=== PATIENT | female | born 1945 | race Caucasian/White ===

== ENCOUNTER → 2016-04-13 | Outpatient (CLI) | payer OTHER, MEDICARE | LOC: BHLMT 13:30 | PROVIDERS: ATTEND Internal Medicine Cardiovascular Disease | DX: I27.0 Primary pulmonary hypertension (principal); E11.9 Type 2 diabetes mellitus without complications; E78.5 Hyperlipidemia, unspecified; E66.01 Morbid (severe) obesity due to excess calories; I73.9 Peripheral vascular disease, unspecified; G62.9 Polyneuropathy, unspecified | CPT/HCPCS: 93005-PO ==

== ENCOUNTER → 2016-04-24 | Outpatient (CLI) | payer OTHER, MEDICARE | LOC: BHFA 13:00 | PROVIDERS: ATTEND Internal Medicine Cardiovascular Disease | DX: R06.02 Shortness of breath (principal) | CPT/HCPCS: 78452; 93017; A9500; J2785 ==

== ENCOUNTER → 2016-06-30 | Outpatient (CLI) | payer OTHER, MEDICARE | LOC: FIMAGING 10:03 | PROVIDERS: ATTEND Internal Medicine Pulmonary Disease | DX: I27.0 Primary pulmonary hypertension (principal); R07.9 Chest pain, unspecified | CPT/HCPCS: 71020; 78582; 93970; A9540; A9558 ==

== ENCOUNTER 2016-08-08 11:19 | Day surgery (SDC) | payer OTHER, MEDICARE ==
[2016-08-08] MEDS ORDERED: NS 1,000 ML IV ONE (11:23)
[2016-08-08] MEDS ORDERED: ASPIRIN EC 325 MG TAB PO ONE ×2 (11:23→12:04)
[2016-08-08] MEDS ORDERED: FAMOTIDINE 20 MG TAB PO ONE (11:23)
[2016-08-08] MEDS ORDERED: DIAZEPAM 5 MG TAB PO ONE (11:23)
[2016-08-08] MEDS ORDERED: diphenhydrAMINE 25 MG CAP PO ONE ×2 (11:23→12:04)
--- NOTE | 2016-08-08 11:54 | CPEKG ---
Heart Rate: 79 RR Interval: 759 P-R Interval: 180 QRSD Interval: 72 QT Interval: 376 QTC Interval: 432 P [place]: 32 QRS [place]: -3 T Wave [place]: 46 EKG Severity - NORMAL ECG - EKG Impression: SINUS RHYTHM Electronically Signed By: Geraldo Jalloh 08-Aug-2016 16:17:58
[2016-08-08] MEDS ORDERED: FAMOTIDINE 20 MG TAB ONE (12:04)
[2016-08-08] MEDS ORDERED: DIAZEPAM 5 MG TAB ONE (12:05)
[2016-08-08 12:08] LABS: % IMMATURE GRANULYOCYTES 0.6 % (0.0-1.1); ABSOLUTE IMMATURE GRANULOCYTES 0.04 10^3/uL (0.00-0.10); ADD DIFF? NO; ADD MORPH? NO; ADD SCAN? NO; ATYPICAL LYMPHOCYTE FLAG 0 (0-99); FRAGMENT RBC FLAG 0 (0-99); HEMATOCRIT 40.5 % (38.0-47.0); HEMOGLOBIN 13.8 g/dL (12.6-16.3); LEFT SHIFT FLG 0 (0-99); LIPEMIA HEMOLYSIS FLAG 90 (0-99); MEAN CELL HEMOGLOBIN CONCENTR. 34.1 g/dL (32.4-36.7); MEAN CELL VOLUME 99.8 fL (81.5-99.8); MEAN PLATELET VOLUME 9.2 fL (8.7-11.7); PLATELET CLUMPS FLAG 0 (0-99); PLATELET COUNT 263 10^3/uL (150-400); RED BLOOD CELL COUNT 4.06 10^6/uL (4.18-5.33); RED CELL DISTRIBUTION WIDTH 12.5 % (11.5-15.2)
[2016-08-08 12:20] LABS: ANION GAP 14 mEq/L (8-16); CALCIUM 10.1 mg/dL (8.5-10.4); CARBON DIOXIDE 19 mEq/l (22-31); CHLORIDE 104 mEq/L (97-110); CHOLESTEROL 185 mg/dL (140-220); CHOLESTEROL/HDL RATIO 3.03 RATIO (1.00-4.44); CREATININE 0.9 mg/dL (0.6-1.0); GLOMERULAR FILTRATION RATE > 60; GLUCOSE 107 mg/dL (70-100); HIGH DENSITY LIPOPROTEIN 61 mg/dL (40-85); LDL/HDL RATIO 1.39 RATIO (1.00-3.22); LOW DENSITY LIPOPROTEIN 85 mg/dL (80-100); MAGNESIUM 1.7 mg/dL (1.6-2.3); NON-HIGH DENSITY LIPOPROTEIN 124 mg/dL (90-129); POTASSIUM 4.9 mEq/L (3.5-5.2); SODIUM 137 mEq/L (134-144); TRIGLYCERIDE 198 mg/dL (35-135); VERY LOW DENSITY LIPOPROTEINS 39 mg/dL (8-25)
[2016-08-08 12:43] LABS: PROTIME(PATIENT) 13.1 SEC (12.0-15.0)
[2016-08-08] MEDS ORDERED: LIDOCAINE 1% 300 MG/30 ML SDV ONE (13:53)
[2016-08-08] MEDS ORDERED: fentaNYL 100 MCG/2 ML INJ ONE (13:53)
[2016-08-08] MEDS ORDERED: MIDAZOLAM 2 MG/2 ML VIAL ONE ×2 (13:54→14:49)
[2016-08-08] MEDS ORDERED: IOPAMIDOL (ISOVUE-370) 150 ML BTL IV ONE (13:54)
[2016-08-08] MEDS ORDERED: ADENOSINE 6 MG/2 ML VIAL ONE ×2 (14:22→14:24)
[2016-08-08] MEDS ORDERED: ADENOSINE 90 MG/30 ML VIAL IV ONE (14:23)
--- NOTE | 2016-08-09 01:50 | CPIP ---
[f rep st] INVASIVE CARDIAC PROCEDURE DATE OF PROCEDURE: 08/08/2016 INDICATIONS: The patient is 71 years old. She has a history of an elevated estimated RVSP by echoc ardiography with [place] [employer] Functional Class 2/3 exertional dyspnea. She has been see n by Pulmonology and is now referred for right and left heart catheterization to delineate her pulmo nary pressures and rule out underlying ischemia as an anginal equivalent. PROCEDURE: Diagnostic right and left heart catheterization, coronary angiography, left ventriculogr aphy. TECHNIQUE: Following informed consent, the patient was brought to the cardiac [facility] in a fasting state. The right groin was prepped and draped in the usual sterile fashion. Usi ng the modified Seldinger technique, access was gained to the right femoral vein. A 7-Kinyarwanda sheath was placed. Access was gained using modified Seldinger technique to the right femoral artery, and a 6-Kinyarwanda sheath was placed. Using standard Multipack, a left heart catheterization was performed with orthogonal imaging of the coronary arteries and left ventriculography. A full right heart cath eterization was subsequently performed. Following the procedure, catheters were removed from the rayna dy. The sheaths were pulled. The arteriotomy was closed with Angio-Seal, and manual pressure was h eld for the venous access. FINDINGS: HEMODYNAMICS: Pulmonary capillary wedge pressure at end-diastole was 22 with a mean of 1 5; pulmonary artery pressure was 57/29 with a mean of 40 mmHg; right ventricular pressure 54/9 with end-diastolic pressure of 15 mmHg; right atrial pressure was 12 mmHg. Saturation in the pulmonary a rtery 66%, in the aorta 89.4%. Calculated cardiac output by Inderjit was 5.58 L/min with an index of 2. 86 L/min per meter squared. Due to the patient's elevated pulmonary capillary wedge pressure, the d ecision was made not to use vasodilator challenge. ANGIOGRAPHY: Left main: Left main is a large caliber vessel with appropriate bifurcation of left anterior descen ding and circumflex distributions. The left main coronary artery is free of disease. Left anterior descending: Left anterior descending is a moderate caliber transapical vessel with us ual complement of diagonal branches. In the mid vessel, there is a 40% to 50% focal lesion. Circumflex: Circumflex is moderate caliber. There are 2 obtuse marginal branches. The circumflex and its branch vessels are normal in appearance. Right coronary artery: Right coronary artery is moderate caliber and dominant. The right coronary artery is normal in appearance. LEFT VENTRICULOGRAPHY: Ejection fraction is estimated at 70% with normal wall motion. No significa nt mitral insufficiency is appreciated. IMPRESSION: 1. Moderate pulmonary hypertension with evidence of elevated pulmonary capillary wedge pressure. 2. Mild nonobstructive coronary artery disease with evidence of a 40% to 50% mid left anterior desc ending lesion. 3. Preserved left ventricular systolic function. 4. General impression is that the patient does not have evidence of primary pulmonary hypertension. RECOMMENDATIONS: Patient will be managed medically. /[id number]/MODL
== END 2016-08-08 19:37 | disposition home or self-care (01) ==
LOC: FCATH 11:19
PROVIDERS: ATTEND Internal Medicine Cardiovascular Disease
PROC: B2111ZZ Fluoroscopy of Multiple Coronary Arteries using Low Osmolar Contrast (ICD-10-PCS; principal; 2016-08-08)
PROC: B2151ZZ Fluoroscopy of Left Heart using Low Osmolar Contrast (ICD-10-PCS; principal; 2016-08-08)
PROC: 4A023N8 Measurement of Cardiac Sampling and Pressure, Bilateral, Percutaneous Approach (ICD-10-PCS; principal; 2016-08-08)
DX: I27.2 Other secondary pulmonary hypertension (principal); R06.09 Other forms of dyspnea; E66.01 Morbid (severe) obesity due to excess calories; G47.33 Obstructive sleep apnea (adult) (pediatric); I25.10 Atherosclerotic heart disease of native coronary artery without angina pectoris; I12.9 Hypertensive chronic kidney disease with stage 1 through stage 4 chronic kidney disease, or unspecified chronic kidney disease; E11.21 Type 2 diabetes mellitus with diabetic nephropathy; I36.1 Nonrheumatic tricuspid (valve) insufficiency; N18.3 Chronic kidney disease, stage 3 (moderate); E78.5 Hyperlipidemia, unspecified; Z68.41 Body mass index [BMI] 40.0-44.9, adult; I73.9 Peripheral vascular disease, unspecified; G62.9 Polyneuropathy, unspecified; Z87.891 Personal history of nicotine dependence
CPT/HCPCS: C1760; J0153; J1644; J2250; J3010; Q9967

== ENCOUNTER 2017-04-30 14:14 | Inpatient (IN) | payer OTHER, MEDICARE ==
[2017-04-30] MEDS ORDERED: ONDANSETRON 4 MG/2 ML VIAL IVP PRN ×3 (16:56→19:03)
[2017-04-30 17:39] LABS: PLATELET COUNT 375 10^3/uL (150-400)
--- NOTE | 2017-04-30 17:40 | CPEKG ---
Heart Rate: 94 RR Interval: 638 P-R Interval: 168 QRSD Interval: 72 QT Interval: 360 QTC Interval: 451 P [place]: 43 QRS [place]: -31 T Wave [place]: 79 EKG Severity - ABNORMAL ECG - EKG Impression: SINUS RHYTHM EKG Impression: PROBABLE INFERIOR INFARCT, AGE INDETERMINATE Electronically Signed By: Lance Pulido 02-May-2017 10:09:36
[2017-04-30] MEDS ORDERED: PROTOCOL POTASSIUM 1 DOSE MISC PRN (18:59)
[2017-04-30] MEDS ORDERED: NS 1,000 ML IV SCH (19:00)
[2017-04-30] MEDS ORDERED: HYDROmorphONE/DILAUDID 1 MG/ML INJ IVP PRN (19:03)
[2017-04-30] MEDS ORDERED: ACETAMINOPHEN 325 MG TAB PO PRN (19:03)
[2017-04-30] MEDS ORDERED: PROMETHAZINE HCL 25 MG/ML INJ IVP PRN (19:03)
[2017-04-30] MEDS ORDERED: hydrALAZINE 20 MG/ML VIAL IVP PRN (19:10)
[2017-04-30] MEDS ORDERED: HYDROmorphone HCL/NS 0.5 MG/ML SYR IVP PRN (19:17)
--- NOTE | 2017-04-30 20:58 | GHP ---
[f rep st] HISTORY AND PHYSICAL DATE OF ADMISSION: 04/30/2017 CHIEF COMPLAINT: Shortness of breath. Abdominal pain. Unintentional weight loss. HISTORY: The patient is a 72-year-old female who has been having shortness of breath for the last ye ar, but it did get much better and she was having much more tolerance with activity, but for the last week she has again returned to severe shortness of breath, where she can now only just walk 2 feet b efore she gets acute onset of severe dyspnea on exertion. She denies any edema. She has also been h aving a central chest pressure for the last 2-3 days, which feels like a fist pushing deep into her c hest. She also complains of unrelenting nausea for the last couple of months, and she has lost 32 pounds un intentionally. She has had diarrhea for the last 2 months. She has had an epigastric abdominal pain , and her primary care doctor prescribed omeprazole but it has not helped. Her last colonoscopy was 5 years ago. She has never had an EGD. PAST MEDICAL HISTORY: 1. Pulmonary hypertension. 2. Nonobstructive coronary artery disease, with a 50% LAD lesion on cardiac catheterization in July 2016. 3. Obstructive sleep apnea. Oxygen at night with a mouthpiece. 4. Chronic kidney disease. Baseline creatinine 1.4. 5. Obesity, BMI 34. PAST SURGICAL HISTORY: Gastric bypass surgery. MEDICATIONS: Please see computerized record for full detailed list. ALLERGIES: Codeine and rosuvastatin. SOCIAL HISTORY: She quit smoking 20 years ago. She drinks 1-2 glasses of wine per night. She lives alone. REVIEW OF SYSTEMS: Complete review of systems obtained. Review of systems negative regarding consti tutional, HEENT, GI, pulmonary, cardiovascular, , hematology, skin, musculoskeletal, endocrine, and psych, except for positives and negatives as noted in HPI. FAMILY HISTORY: Reviewed and noncontributory to presenting complaint. PHYSICAL EXAMINATION: GENERAL: Well-developed, well-nourished female, in no acute distress. VITAL SIGNS: Temperature is 36.6, pulse 102, blood pressure 161/101, saturating 94% on room air. EYES: N ormal conjunctivae. Pupils reactive to light. ENT: Normal ears and nose. Hearing intact. Normal teeth. Oropharynx moist. NECK: Trachea midline. No thyromegaly. CHEST: Normal effort. LUNGS: Clear to auscultation bilaterally. CARDIOVASCULAR: Regular rhythm. No murmur. No lower extremity edema. ABDOMEN: Soft. Minimal tenderness. No hepatosplenomegaly. SKIN: Warm, dry, intact, witho ut rash. MUSCULOSKELETAL: No cyanosis or clubbing. Strength 5/5 upper and lower extremities. NEUR O: Cranial nerves intact. Normal sensation to light touch. PSYCH: Alert and oriented x3. Normal affect. Normal judgment and insight. Normal memory. LABS: White count 7.97, hematocrit 37.7, platelet 375. Sodium 136, potassium 3.3, chloride 88, bica rb 26, BUN 32, creatinine 1.7, glucose 113. Troponins negative. BNP is 116. D-dimer is 0.51. EKG viewed by me, and my personal interpretation is normal sinus rhythm but with some anterior T-wave fla ttening. Chest x-ray is negative. ASSESSMENT AND PLAN: 1. Dyspnea on exertion. Her chest x-ray is negative. Her D-dimer is negative. We will check an ec hocardiogram. Cardiology will follow. She was directly admitted to the hospital by Dr. Jalloh after he saw her in the office today. 2. Chest pain. She had a cardiac catheterization less than 1 year ago that showed a 50% LAD lesion. We will follow troponins. Given this recent cardiac catheterization, if her troponins are negative I think it is less likely to be cardiac in origin, and again I think we need to pursue a further GI workup. 3. Kbaqg-ww-lneiqnu kidney disease. I suspect she is dehydrated due to poor p.o. intake. We will h ydrate overnight with IV fluids and recheck in the morning. 4. Abdominal pain, with a greater than 30 pound unintentional weight loss. We will check a CT scan of the abdomen and pelvis. Would also consider endoscopy, EGD, and colonoscopy. 5. Pulmonary hypertension. She also had a right heart catheterization last July. This is likely du e to her obesity and obstructive sleep apnea. 6. Hypertension. This is uncontrolled, with elevated blood pressures on presentation. We will pres cribe p.r.n. IV hydralazine and continue home medications. CODE STATUS: Full. ADMISSION STATUS: We will admit to observation and reevaluate tomorrow regarding ongoing need for ho spitalization. DVT PROPHYLAXIS: She is high risk. We placed her on subcu Lovenox. /[id number]/MODL
[2017-04-30] MEDS ORDERED: NON-FORMULARY NEW DRUG (Omeprazole [Omeprazole] 20 MG) PO SCH (21:00)
[2017-04-30] MEDS: PRAVASTATIN SODIUM 20 MG TAB PO SCH (22:28)
[2017-04-30] MEDS: PANTOPRAZOLE SODIUM 40 MG TAB PO SCH (22:28)
[2017-04-30] MEDS ORDERED: POTASSIUM CL 10 MEQ TAB PO ONE (22:30)
[2017-05-01 04:01] LABS: PLATELET COUNT 343 10^3/uL (150-400)
--- NOTE | 2017-05-01 08:33 | ECHO ---
[email or web address] [address] Main: [phone] Fax: Transthoracic Echocardiogram Name: KRUNAL BAIG MR#: [id number] Study Date: 04/30/2017 Study Time: 04:01 PM Date of : 1945 Age: 72 year(s) Height: 154.9 cm (61 in.) Weight: 83.01 kg (183 lb.) BSA: 1.82 m2 Gender: Female Examination: Echo Indication: Worsening dyspnea Image Quality: Contrast: Requested by: Geraldo Jalloh BP: 165 mmHg/101 mmHg Heart Rate: Rhythm: Indication: Worsening dyspnea Procedure Staff Hvac Maintenance Technician: Mickie Waller [facility] Reading Physician: Raghavendra Okeefe MD Requesting Provider: Conclusions: Normal size left ventricle. Mild concentric LV hypertrophy. Normal global systolic LV function. The ejection fraction is estimated to be 60-65 %. Grade 1 diastolic dysfunction (abnormal relaxation). Normal RV function. The left atrium is normal in size. The right atrium is normal in size. The pulmonary artery pressure is mildly increased. There is pericardial fat. Measurements: Chambers Valvular Assessment AV/MV Valvular Assessment TV/PV Normal Normal Normal Name Value Range Name Value Range Name Value Range Ao Gertrudis (MM): 3.3 cm (2.2 cm-3.7 AV meanP mmHg ( - ) TR Vmax: 2.76 mm/s ( - ) cm) MV E Vmax: 0.50 m/s ( - ) TR PGmax: 30 mmHg ( - ) IVSd (2D): 1.0 cm (0.6 cm-1.1 MV A Vmax: 0.93 m/s ( - ) syst. PAP: 35 mmHg ( - ) cm) MV E/A: 0.54 ( - ) LVDd (2D): 3.9 cm (3.9 cm-5.3 cm) LVDs (2D): 1.8 cm (2.1 cm-4 cm) LVPWd (2D): 0.4 cm ( - ) LVEF (2D): 84 (>=54 %) EF Range: 60-65 % Continued Measurements: Chambers Valvular Assessment AV/MV Valvular Assessment TV/PV Patient: KRUNAL BAIG Study Date: 04/30/2017 Page 1 of 2 04:01 PM Name Value Name Value Name Value LADs: 3.1 cm MV E' Septal: 0.06 m/s CVP (est.): 5 mmHg LADs Lon.6 cm MV E/E' Septal: 9.00 LA Area: 9.1 cm2 MV E/E' Lateral: 8.50 Additional Vessels Name Value Ao Ascendin.4 cm Findings: Left Ventricle: Normal size left ventricle. Mild concentric LV hypertrophy. Normal global systolic LV function. The ejection fraction is estimated to be 60-65 %. No regional wall motion abnormality. Grade 1 diastolic dysfunction (abnormal relaxation). Right Ventricle: Normal size right ventricle. Normal RV function. Left Atrium: The left atrium is normal in size. Right Atrium: The right atrium is normal in size. Mitral Valve: Trivial mitral valve regurgitation. Mildly calcified anterior mitral leaflet. MV leaflets are thickened.. Aortic Valve: The aortic valve is normal in appearance and function. Tricuspid Valve: The tricuspid valve is normal in appearance and function. Mild tricuspid regurgitation is present. The pulmonary artery pressure is mildly increased. Pulmonic Valve: The pulmonic valve is normal in appearance and function. Trivial pulmonic valve regurgitation. Aorta: The aorta is normal. Pericardium: No pericardial effusion. There is pericardial fat. (No Signature Object) Patient: KRUNAL BAIG Study Date: 04/30/2017 Page 2 of 2 04:01 PM D:_[id number]
[2017-05-01] MEDS: FLUoxetine 20 MG CAP PO SCH (08:53)
[2017-05-01] MEDS: CLOPIDOGREL BISULFATE 75 MG TAB PO SCH (08:54)
[2017-05-01] MEDS: CARVEDILOL 6.25 MG TAB PO SCH (08:54)
[2017-05-01] MEDS: PANTOPRAZOLE SODIUM 40 MG TAB PO SCH ×2 (08:54→19:45)
[2017-05-01] MEDS: NS W/ 20 KCl/L 1,000 ML IV SCH ×2 (08:58→22:09)
[2017-05-01] MEDS ORDERED: ENOXAPARIN 40 MG/0.4 ML SYR SC SCH (09:00)
[2017-05-01] MEDS ORDERED: NON-FORMULARY NEW DRUG (Fluoxetine Hcl [Prozac 40 Mg] 40 MG) PO SCH (09:00)
[2017-05-01] MEDS ORDERED: ENOXAPARIN 30 MG/0.3 ML SYR SC SCH (09:00)
--- NOTE | 2017-05-01 11:51 | ASMTCASEMG ---
Living Arrangements What is your living Answers: Alone arrangement? Who do you live with? Type Of Residence What kind of residence do Answers: Apartment you live in? Discharge Plan Comments Coordination Status Comments Notes: Pt is a 72 y/o female admitted for shortness of breath and hyx of hypertension. Therapies have been ordered and awaiting recommendations. Needs are TBD at this time. Pt is currently being followed by transitional care. CM to follow. Plan: TBD Date Signed: 05/01/2017 11:50 AM Electronically Signed By:ANNEMARIE Drew
--- NOTE | 2017-05-01 15:32 | GCON ---
[f rep st] CONSULTATION DATE OF CONSULTATION: 05/01/2017 CHIEF COMPLAINT: Shortness of breath and nausea. HISTORY OF PRESENT ILLNESS: The patient is a 72-year-old female who was referred to our office yesterday by Dr. Claudio Jalloh for progressive shortness of breath and chest pressure. She has a history of coronary artery disease with a 40%-50% lesion to the mid LAD by angiogram in July 2016. She also has known moderate pulmonary hypertension, obesity, obstructive sleep apnea, diabetes, hypertension, and chronic renal insufficiency. She has noted shortness of breath for over the past few years, but it has become significantly worse over the last 3-4 days. She is only able to walk a few feet before she has to stop and rest. She has also noted chest pressure, which can be constant, occurring at night, or throughout the day. It does seem to be worse with lying down, but is not worse with exertion or deep breaths. She has a history of gastric bypass and has been complaining of nausea for the past 6 months. She has also had anorexia and weight loss of 32 pounds over the last 3 months which was unintentional. She has only been able to eat soup over the last few months. Her diuretics were reduced secondary to pre renal azotemia a few weeks ago but her weight has continued to decline. On admission to the hospital, her BNP was within normal limits at 116. Her troponins have been negative x3. Her D-dimer was minimally elevated at 0.51. A chest x-ray was negative for acute cardiopulmonary disease. An echocardiogram showed preserved LV function with an ejection fraction of 60%-65% with mild left ventricular hypertrophy and mildly elevated right ventricular systolic pressures. She had a trial of omeprazole month ago. Initially, her nausea improved, but it has since returned. PAST MEDICAL HISTORY: Coronary artery disease with a 40%-50% lesion to the mid LAD by angiogram in July of 2016. Moderate pulmonary hypertension by right heart catheterization in July 2016, obesity, obstructive sleep apnea treated with mouthpiece and oxygen, diabetes, hypertension, hyperlipidemia, chronic renal insufficiency. PAST SURGICAL HISTORY: Gastric bypass. SIGNIFICANT FAMILY HISTORY: Coronary artery disease. SOCIAL HISTORY: She quit smoking tobacco 20 years ago. She currently lives alone. She is very concerned about her symptoms and is anxious to find the answer of why she has been so nauseous and short of breath. MEDICATION: Please see the chart for home medications. ALLERGIES: Codeine and Crestor. REVIEW OF SYSTEMS: Negative except for what is stated in the H and P. PHYSICAL EXAMINATION: GENERAL: Patient appears in no acute distress. VITAL SIGNS: Blood pressure 124/81, heart rate 83, oxygen saturation 99% on 1.5 L, afebrile. LUNGS: Clear to auscultation. No wheezes, rhonchi, or crackles auscultated. CARDIAC: Regular rate and rhythm without any significant murmurs , rubs, or gallops appreciated. ABDOMEN: Soft, nontender, without splenomegaly or hepatomegaly. EXTREMITIES: Palpable pulses bilaterally without any evidence of edema. NEUROLOGIC: Nonfocal. SKIN: No obvious rashes or ecchymosis identified. PSYCHIATRIC: Mood and affect appropriate. LABORATORY: Troponin negative x3. Hemoglobin 12.1, hematocrit 34.8. D-dimer 0.51. BNP 116. Sodium 136, potassium 3.1, chloride 92, bicarb 30, BUN 31, creatinine 1.8. DIAGNOSTIC STUDIES: Chest x-ray was negative for acute cardiopulmonary disease. Echocardiogram revealed preserved LV function with an ejection fraction of 60%-65% with mild LVH and mild elevated right ventricular systolic pressures. Her right ventricular function was normal. EKG reveals normal sinus rhythm with inferior Q-waves and nonspecific ST-T wave changes diffusely. ASSESSMENT: The patient is a 72-year-old female with a history of coronary artery disease, diastolic heart failure, pulmonary hypertension, obesity, sleep apnea, diabetes, hypertension, hyperlipidemia, and chronic renal insufficiency, who presents with profound shortness of breath, chest pressure, nausea, anorexia ,and weight loss. PLAN: The patient is a 72-year-old female who presents with class 3-4 heart failure symptoms. She has had chronic shortness of breath for the last few years, but it has significantly progressed over the last 3-4 days. She is now only able to walk a few feet before she has to stop and rest. She is also having significant chest discomfort. She had a prior angiogram in July of 2016 , which revealed moderate coronary disease with a 40%-50% mid LAD lesion which was not intervened upon. This admission her troponins are negative x3 and there are no significant changes on her EKG. Her echocardiogram showed preserved LV function with an ejection fraction of 60%-65% with only mildly elevated RVSP and normal RV function. I doubt her shortness of breath and chest discomfort is cardiac in origin. I would recommend further GI workup as a cause for her symptoms. She does have a history of gastric bypass surgery and is now having significant nausea, anorexia and unintentional weight loss. If her GI workup is negative, consider further evaluation for pulmonary embolus with a pulmonary CT angiogram. Her D-dimer is minimally elevated, but she is having fairly significant shortness of breath. We will wait to order the study given her renal insufficiency and creatinine of 1.7. She did have a v/Q scan in June 2016 for shortness of breath which was normal. She states her symptoms are significantly worse at this time. She is dehydrated and has had sinus tachycardia when going from a sitting to standing position. This is improving with fluid replacement. /[id number]/MODL MTDD
[2017-05-01] MEDS ORDERED: ONDANSETRON DISINTEGRATING 4 MG TAB PO PRN (15:36)
[2017-05-01] MEDS ORDERED: PROCHLORPERAZINE MALEATE 10 MG TAB PO PRN (15:37)
[2017-05-01] MEDS ORDERED: PROMETHAZINE HCL 25 MG TAB PO PRN (15:37)
[2017-05-01] MEDS ORDERED: ONDANSETRON 4 MG/2 ML VIAL IVP PRN (15:38)
[2017-05-01] MEDS ORDERED: PROMETHAZINE HCL 25 MG/ML INJ IVP PRN (15:38)
[2017-05-01] MEDS: HEPARIN 5,000 UNIT/0.5 ML SYR SC SCH ×2 (15:48→22:09)
[2017-05-01] MEDS: LOPERAMIDE HCL 2 MG CAP PO PRN ×3 (16:55→18:10)
--- NOTE | 2017-05-01 18:30 | HOSPPROG ---
Hospitalist Progress Note Assessment/Plan: Assessment: 72-year-old female presents with acutely worsening dyspnea and acute kidney injury Plan: 1. Dyspnea. Acute, new problem this provider, further workup indicated. Unclear etiology, patient has known coronary artery disease which was approximately 50% during cardiac catheterization with the past year, she is at risk for worsening obstructive coronary disease as well as pulmonary embolism -get V/Q scan -discussed with Randi Dominguez, cardiology consultation appreciated, she reports to me that the echocardiogram demonstrates a normal right ventricle, normal left ventricle, no significant valvular abnormalities, we have agreed to undergo nuclear medicine stress testing as soon as possible but will defer on treating this as unstable angina given the unusual nature of the presentation as well as negative cardiac biomarkers at this time and no ischemic changes on EKG, personally interpreted -if both of the above are unremarkable, then I will get high-resolution chest CT 2. Acute kidney injury on chronic kidney disease. Most likely secondary to hypovolemia and poor access to hydration in the setting of inability to ambulate and complete activities of daily living secondary to her pervasive dyspnea -baseline creatinine 1.4 with stage III disease,, current creatinine level 1.8 -continue IV fluids with small amount of supplemental potassium -continue to monitor strict I&Os, daily weights, creatinine level 3. Coronary artery disease. Chronic, continue home medications, risk stratify tomorrow if V/Q scan negative 4. Hypertension. Chronic, continue beta-bonnie 5. Nausea. Acute, no clearly identifiable etiology on abdominal CT with oral contrast Diet. Regular Prophylaxis. High risk patient, heparin subcu Code. Full Disposition. Anticipated discharge uncertain, upgraded to inpatient admission status given that anticipated length stay is greater than 48 hr for reasonable medical necessity including acute and pervasive dyspnea requiring further diagnostic workup with high risk of severe abnormalities including obstructive coronary disease and pulmonary embolism in the setting of concomitant acute kidney injury making diagnostic workup challenging. Subjective: She remains dyspneic at rest, unable to ambulate secondary to shortness of breath, nauseous Objective: Vital Signs Temp Pulse Resp BP Pulse Ox 36.9 C 84 15 106/79 99 05/01/17 15:57 05/01/17 15:57 05/01/17 15:57 05/01/17 15:57 05/01/17 15:57 Microbiology 05/01/17 10:30 Gastrointestinal Tract Panel (PCR) - Final Stool No Organism Detected Laboratory Results 05/01/17 03:04 05/01/17 03:04 04/30/17 05/01/17 05/02/17 05:59 05:59 05:59 Intake Total 700 Balance 700 - Physical Exam Constitutional: not in pain, obese, uncomfortable, No no apparent distress ( Mildly) Cardiovascular: tachycardia, No systolic murmur, No irregularly irregular, No edema Respiratory: no rales or rhonchi, clear to auscultation, respiratory distress ( Visibly tachypneic), No expiratory wheeze, No inspiratory crackles, No bronchial breath sounds Gastrointestinal: normoactive bowel sounds, no palpable masses, tenderness ( Mild in the mid epigastric area), No guarding, No distension Skin: warm, No abrasion, No erythema, No induration, No rash Neurologic: AAOx3, No facial droop Psychiatric: interacting appropriately, not encephalopathic, thought process linear, anxious, No agitated ICD10 Worksheet Patient Problems: Problems Problem Status Onset CKD (chronic kidney disease), stage III Acute
[2017-05-01] MEDS: PRAVASTATIN SODIUM 20 MG TAB PO SCH (19:45)
[2017-05-02 03:36] LABS: PLATELET COUNT 276 10^3/uL (150-400)
[2017-05-02] MEDS: NS W/ 20 KCl/L 1,000 ML IV SCH (06:10)
[2017-05-02] MEDS: HEPARIN 5,000 UNIT/0.5 ML SYR SC SCH ×3 (06:10→21:18)
[2017-05-02] MEDS ORDERED: POTASSIUM CL 20 MEQ TAB PO ONE (08:15)
[2017-05-02] MEDS ORDERED: POTASSIUM Cl (KCl) 40 MEQ in NS 1,000 ML IV SCH (08:30)
[2017-05-02] MEDS: CARVEDILOL 6.25 MG TAB PO SCH (08:34)
[2017-05-02] MEDS: PANTOPRAZOLE SODIUM 40 MG TAB PO SCH ×2 (08:37→21:18)
[2017-05-02] MEDS: FLUoxetine 20 MG CAP PO SCH (08:37)
[2017-05-02] MEDS: CLOPIDOGREL BISULFATE 75 MG TAB PO SCH (08:37)
--- NOTE | 2017-05-02 10:03 | ASMTCMCOM ---
CM Note CM Note Notes: Pts case reviewed in tx rounds. Therapies are recommending HC at this time. Pt reports that having HC will be helpful. Pt reports that she feels wobbly at home. CM provided pt w/ list of HC agencies. Pt has chosen [facility]. Referral made to [facility] and they are able to accept. Pt reports that her PCP is Dr. Samaniego. CM called bed board and gave them this info to put in [place]. CM to follow. Plan: [facility]; PT and OT Date Signed: 05/02/2017 10:02 AM Electronically Signed By:ANNEMARIE Drew
--- NOTE | 2017-05-02 10:09 | PDMN ---
Medical Necessity Medical necessity: change to IP; los>2mn for dyspnea of unclear etiology, DOUG on CKD r/t hypovolemia and poor hydration r/t decline in functional status, and N/V; requires stress test, V/Q scan, IVF, I&O, monitor creat and wts; comorbid CAD, HTN; per order and progress note 05/01/17
[2017-05-02] MEDS: LOPERAMIDE HCL 2 MG CAP PO PRN (10:51)
--- NOTE | 2017-05-02 13:29 | PDCARPN ---
Cardiology Progress Note Chief Complaint: SOB, CP, and nausea Assessment/Plan: Assessment: Renetta is a 72 y/o F with a history of CAD with 40-50% stenosis to the LAD by angiogram in 07/2016, moderate PHTN by RHC, HTN, DM, obesity, DM, HLP, CRI, and CHRIS who presented to the hospital with 3-4 days of severe KC and CP. Her chest pain can lasts for hours and occurs at rest and with exertion. Troponins are negative x3, BNP is wnl, D-dimer was mildly elevated with normal V/Q scan. Echo showed preserved LV function with mild LVH and mildly elevated RVSP. She is also complaining of severe nausea, anorexia, and 32 pound unintentional weight loss. A abd CT was negative. She was dehydrated and fluids she feels significantly better. She was only able to walk a few feet before she had to stop secondary to SOB and she was able to ambulate in the halls today without symptoms. Her sinus tachy has improved. Plan: 1. severe SOB/CP which has improved significantly. I think this was related to dehydration and sinus tachycardia with even minimal exertion. Her rates have decreased from 150 BPM to 120 BPM with exertion. 2. CAD with known 40-50% stenosis to the LAD- plan for nuclear stress test tomorrow. I think obstructive CAD is unlikely. 3. PHTN, moderate- stable by echo 4. HTN- borderline hypotensive. Continue Coreg. Norvasc on hold 5. CRI- improved with hydration 6. prior gastric bypass now complaining of severe nausea- abd CT wnl. Needs GI consult as outpatient. 7. Hypokalemia- replacing Likely d/c tomorrow if nuc is normal. 05/02/17 13:21 05/02/17 13:29 Subjective: Her KC and lightheadedness has significantly improved. She denies any further CP. Reviewed/Discussed With: hospitalist Objective: Vital Signs (8 Hrs) Temp Pulse Resp BP Pulse Ox 05/02/17 11:31 37.1 C 75 20 100/67 98 05/02/17 08:34 86 108/60 05/02/17 07:21 37.0 C 82 16 94/61 L 98 Intake/Output (24 Hrs) 05/01/17 05/02/17 05/03/17 05:59 05:59 05:59 Intake Total 1700 1150 Output Total 300 Balance 1700 850 Intake: Oral (ml) 700 300 IV Infused (ml) 1000 850 NS W/ 20 KCl/L 1,000 ml @ 650 150 mls/hr IV CONT JUNIOR Rx#:[id number] Ns 1,000 ml @ 100 mls/hr 1000 200 IV CONT JUNIOR Rx#: [id number] Output: Urine (ml) 300 Bedside Commode 300 Other: Weight 82.2 kg Output Comment Bedside Commode 1st stool was mixed/formed Number of Stools Bedside Commode 5 Result Diagrams: 05/02/17 03:06 05/02/17 03:06 Cardiac Labs: Cardiac Lab Results (72 Hrs) 05/01/17 05/01/17 04/30/17 03:04 00:30 16:00 Troponin I < 0.012 0.014 < 0.012 Telemetry: NSR - Physical Exam Constitutional: obese Ears, Nose, Mouth, Throat: moist mucous membranes Cardiovascular: regular rate and rhythm, no murmurs, no rubs Respiratory: clear to auscultate bilat, no crackles, no wheezes Skin: no edema Neurologic: AAOx3 ICD10 Worksheet Patient Problems: Problems Problem Status Onset CKD (chronic kidney disease), stage III Acute
--- NOTE | 2017-05-02 18:13 | HOSPPROG ---
Hospitalist Progress Note Assessment/Plan: Assessment: 72-year-old female presents with acutely worsening dyspnea and acute kidney injury on CKD Plan: 1. Dyspnea. Acute, unclear etiology, possibly 2/2 DOUG/hypovolemia, patient has known coronary artery disease which was approximately 50% during cardiac catheterization with the past year, she is at risk for worsening obstructive coronary disease as well as pulmonary embolism -VQ no PE -discussed with Randi Dominguez, cardiology consultation appreciated, she and I agree to get nuc stress in AM to further eval for cardiac etiology -if stress neg, and patient feeling significantly improved, then would not rec further w/u -if stress neg, and patient NOT feeling improved, would rec high-res chest CT -cont o2 wean, gauge whether she requires at discharge 2. Acute kidney injury on chronic kidney disease stage III. Most likely secondary to hypovolemia and poor access to hydration in the setting of inability to ambulate and pervasive nausea -baseline around 1.4, currently 1.3 s/p IVF -hold further IVF, kash PO -repeat Cr in AM 3. Coronary artery disease. Chronic, continue home medications, nuc jennifer in AM 4. Hypertension. Chronic, continue beta-bonnie 5. Nausea. Acute, no clearly identifiable etiology on abdominal CT with oral contrast, improving today -able to tolerate PO intake today -may have had an enteritis -recommend she discharge home w/ PO PRN anti-emetics (zofran and phenergan) -she would like to stop PPI, as she feels like it gives her dry mouth 6. Hypokalemia. Acutely worsening today, added K to IVF, repleted, monitor 7. Anemia. Likely 2/2 CKD Diet. Regular Prophylaxis. High risk patient, heparin subcu Code. Full Disposition. Anticipated discharge 05/03, pending neg nuc stress and stabilization of symptoms Subjective: less nausea today, kash PO diet, more ambulatory and less dyspnea Objective: Vital Signs Temp Pulse Resp BP Pulse Ox 36.6 C 88 16 126/78 H 94 05/02/17 15:47 05/02/17 15:47 05/02/17 15:47 05/02/17 15:47 05/02/17 15:47 Microbiology 05/01/17 10:30 Gastrointestinal Tract Panel (PCR) - Final Stool No Organism Detected Laboratory Results 05/02/17 03:06 05/02/17 14:43 05/01/17 05/02/17 05/03/17 05:59 05:59 05:59 Intake Total 1700 1150 Output Total 300 Balance 1700 850 - Pending Discharge Pending Discharge Within 24 Hours: Yes Pending Discharge Date: 05/03/17 Pending Discharge Time: 11:00 - Physical Exam Constitutional: no apparent distress, not in pain, obese, No uncomfortable Cardiovascular: regular rate and rhythym, no murmur, rub, or gallop, edema ( trace RLE), No irregularly irregular Respiratory: no respiratory distress, no rales or rhonchi, clear to auscultation Gastrointestinal: normoactive bowel sounds, soft, non-tender abdomen, no palpable masses, No distension Neurologic: AAOx3, sensation intact bilaterally, No weakness Psychiatric: interacting appropriately, not anxious, not encephalopathic, thought process linear ICD10 Worksheet Patient Problems: Problems Problem Status Onset CKD (chronic kidney disease), stage III Acute
[2017-05-02] MEDS: PRAVASTATIN SODIUM 20 MG TAB PO SCH (21:18)
[2017-05-03 03:06] VITALS: RESP 17
[2017-05-03] MEDS: HEPARIN 5,000 UNIT/0.5 ML SYR SC SCH (06:15)
[2017-05-03 07:15] VITALS: TEMP 98.8
[2017-05-03] MEDS ORDERED: MAGNESIUM SULF 1 GM/DEXTROSE 100 ML IV ONE (08:44)
[2017-05-03] MEDS: PANTOPRAZOLE SODIUM 40 MG TAB PO SCH (08:51)
[2017-05-03] MEDS: FLUoxetine 20 MG CAP PO SCH (08:51)
[2017-05-03] MEDS: CLOPIDOGREL BISULFATE 75 MG TAB PO SCH (08:51)
[2017-05-03] MEDS ORDERED: REGADENOSON 0.4 MG/5 ML SYR IVP ONE (09:35)
--- NOTE | 2017-05-03 10:25 | CPR ---
[f rep st] NONINVASIVE CARDIAC PROCEDURE REPORT DATE OF PROCEDURE: 05/03/2017 PROCEDURE: Lexiscan nuclear stress test. INDICATION: The patient is a 72-year-old female with a history of coronary artery disease and known 40% to 50% stenosis within the LAD by angiogram 1 year ago. She presented to our office a few days a go complaining of 3-4 days of severe shortness of breath and chest pressure. PROCEDURE IN DETAIL: Consent was obtained. The patient was placed on continuous telemetry. Her res ting EKG revealed normal sinus rhythm with nonspecific ST-T wave changes. The patient was infused wi th Lexiscan and complained of shortness of breath and anxiety associated with the infusion. She jhon ined in normal sinus rhythm throughout the study without any significant ST-T wave changes. She was given caffeine in the recovery phase with a resolution in her symptoms. Her blood pressure at rest w as 100/60 and remained stable throughout the study. PLAN: Await nuclear images. /[id number]/MODL
--- NOTE | 2017-05-03 10:33 | PDCARPN ---
Cardiology Progress Note Chief Complaint: CP and SOB Assessment/Plan: Assessment: Renetta is a 72 y/o F with a history of CAD with 40-50% stenosis to the LAD by angiogram in 07/2016, moderate PHTN by RHC, HTN, DM, obesity, DM, HLP, CRI, and CHRIS who presented to the hospital with 3-4 days of severe KC and CP. Her chest pain can lasts for hours and occurs at rest and with exertion. Troponins are negative x3, BNP is wnl, D-dimer was mildly elevated with normal V/Q scan. Echo showed preserved LV function with mild LVH and mildly elevated RVSP. She is also complaining of severe nausea, anorexia, and 32 pound unintentional weight loss. A abd CT was negative. She was dehydrated and fluids she feels significantly better. She was only able to walk a few feet before she had to stop secondary to SOB and she was able to ambulate in the halls today without symptoms. Her sinus tachy has improved. Plan: 1. severe SOB/CP which has improved significantly. I think this was related to dehydration and sinus tachycardia with even minimal exertion. Her rates have decreased from 150 BPM to 120 BPM with exertion. She is ambulating without chest discomfort or significant SOB. 2. CAD with known 40-50% stenosis to the LAD- plan for nuclear stress test tomorrow. I think obstructive CAD is unlikely. 3. PHTN, moderate- stable by echo 4. HTN- borderline hypotensive. Continue Coreg. Norvasc on hold 5. CRI- improved with hydration 6. prior gastric bypass now complaining of severe nausea- abd CT wnl. Needs GI consult as outpatient. 7. Hypokalemia- replacing Likely d/c today if nuc is normal. 05/03/17 10:31 Subjective: Pt denies any further chest discomfort and her SOB is close to baseline. She is anxious to go home. Objective: Vital Signs (8 Hrs) Temp Pulse Resp BP Pulse Ox 05/03/17 07:11 37.1 C 83 17 99/67 L 98 05/03/17 03:04 36.6 C 84 17 102/59 L 97 Intake/Output (24 Hrs) 05/02/17 05/03/17 05/04/17 05:59 05:59 05:59 Intake Total 1150 1600 Output Total 300 1100 Balance 850 500 Intake: Oral (ml) 300 700 IV Infused (ml) 850 900 NS W/ 20 KCl/L 1,000 ml @ 650 150 mls/hr IV CONT JUNIOR Rx#:[id number] Ns 1,000 ml @ 100 mls/hr 200 IV CONT JUNIOR Rx#: [id number] POTASSIUM Cl (KCl) 40 meq 900 In Ns 1,000 ml @ 100 mls /hr IV CONT JUNIOR Rx#: [id number] Output: Urine (ml) 300 1100 Bedside Commode 300 Toilet 1100 Other: Output Comment Bedside Commode 1st stool was mixed/formed Number of Stools Bedside Commode 5 Toilet 1 Result Diagrams: 05/02/17 03:06 05/03/17 03:03 Cardiac Labs: Cardiac Lab Results (72 Hrs) 05/01/17 05/01/17 04/30/17 03:04 00:30 16:00 Troponin I < 0.012 0.014 < 0.012 - Physical Exam Constitutional: WDWN Ears, Nose, Mouth, Throat: moist mucous membranes Cardiovascular: regular rate and rhythm, no murmurs, no rubs, no gallops Respiratory: clear to auscultate bilat, no crackles, no wheezes Skin: no edema Neurologic: AAOx3 ICD10 Worksheet Patient Problems: Problems Problem Status Onset CKD (chronic kidney disease), stage III Acute
[2017-05-03] MEDS: CARVEDILOL 6.25 MG TAB PO SCH (10:44)
[2017-05-03 10:45] VITALS: BP 118/74
--- NOTE | 2017-05-03 14:25 | PDIAF ---
- Diagnosis Code Status: Full Code - Medication Management Discharge Medications: Medications to Continue on Transfer Clopidogrel Bisulfate [Plavix (*)] 75 mg PO DAILY 08/08/16 [Last Taken 04/30/17 09:00] Fluoxetine HCl [Prozac 40 mg] 40 mg PO DAILY 08/08/16 [Last Taken 04/30/17 09:00 ] Gabapentin [Neurontin 100 MG (*)] 100 mg PO DAILY PRN 08/08/16 [Last Taken 04/16] Herbals/Supplements -Info Only 1 ea PO DAILY 08/08/16 [Last Taken Unknown] Pravastatin Sodium 20 mg PO HS 08/08/16 [Last Taken 04/29/17 22:00] metFORMIN HCL [Metformin HCl ER] 500 mg PO BIDMEAL 08/08/16 [Last Taken 09:00] Carvedilol [Coreg (*)] 6.25 mg PO DAILY 04/30/17 [Last Taken 04/30/17 09:00] Hydrochlorothiazide [HCTZ (*)] 25 mg PO DAILY 04/30/17 [Last Taken 04/30/17 09: 00] Omeprazole 20 mg PO BID 04/30/17 [Last Taken 04/30/17 09:00] Discharge Medications: Refer to the Discharge Home Medication list for PRN reason. - Orders Services needed: Home Care, Registered Nurse, Occupational Therapy Home Care Face to Face: I certify that this patient was under my care and that I had the required [id number] encounter meeting the encounter requirements on the discharge day. My findings support the fact that the patient is homebound as defined in Home Care Face to Face Continued: CMS Chapter 7 Medicare Benefits Manual 30.1.1 , The condition of the patient is such that there exists a normal inability to leave home and consequently, leaving home would require a considerable and taxing effort. Diet Recommendation: no restrictions on diet Diet Texture: Regular Texture Diet - Labs/Radiology CBC w/diff Date: 05/10/17 CMP Date: 05/10/17 - Follow Up Care Current Providers and Referrals: Sailaja Meza MD [Primary Care Provider] - Geraldo Jalloh MD [Medical Doctor] -
--- NOTE | 2017-05-03 14:25 | ASMTLACE ---
LACE Length of stay for Answers: 3 days current admission Acuity / Level of Answers: Yes Care: Did the patient have an inpatient admission? Comorbidities - select Answers: Coronary Artery Disease all that apply Other Notes: pulmonary hypertension, obstructi ve sleep apnea, chronic kidney disease, obesity # of Emergency department Answers: 0 visits in the last 6 months Score: 9 Date Signed: 05/03/2017 02:25 PM Electronically Signed By:ANNEMARIE Drew
[2017-05-03 16:49] VITALS: PULSE 91; O2SAT 96
--- NOTE | 2017-05-03 18:07 | GDS ---
[f rep st] DISCHARGE SUMMARY NEW AND ACUTE DIAGNOSES: 1. Dyspnea secondary to multiple medical problems, including acute kidney injury and hypovolemia, no w resolved. 2. Acute kidney injury on chronic kidney disease secondary to hypovolemia, now resolved. 3. Coronary artery disease, chronic, without signs of active coronary ischemia. 4. Hypertension. Chronic and stable. 5. Hypokalemia, resolved. CONSULTATIONS: Cardiology. PROCEDURES: Nuclear cardiac stress test which was negative for cardiac ischemia. HOSPITAL COURSE: A 72-year-old female, presented with dyspnea. She had known history of prior bautista ry disease and had been status post catheterization with a known LAD lesion of 50%. The catheterizati on occurred in July of 2016. She also has known obstructive sleep apnea and is on nighttime oxygen bu t not using a CPAP mask. She presented with acute shortness of breath. Troponin series was entirely n egative. She was slightly hypokalemic which was repleted. She had known chronic kidney disease, belie angie to be stage 3, with admission creatinine of 1.7 which fell to 1.0 during this hospitalization wit h hydration. The dyspnea seemed to resolve with rehydration and resolution of her acute kidney injury which was fe lt to be due to dehydration. Cardiac nuclear stress test was negative for cardiac ischemia. Troponin series was negative. DISCHARGE MEDICATIONS: These will be the same as her admission medications without changes as follow s: Pravastatin 20 mg h.s., metformin 500 mg b.i.d., gabapentin 100 mg daily, Prozac 40 mg daily, Plav ix 75 mg daily, HCTZ 25 mg daily, carvedilol 6.25 mg daily, omeprazole 20 mg b.i.d. PLAN: Patient is discharged to home but will receive home care services of occupational therapy and RN assistance. She lives in an apartment with close family members who can help. Her followup will be with Sailaja Meza and with Dr. Claudio Jalloh. As Dr. Meza is on temporary leav e, I recommend she follow up with Dr. Claudio Jalloh for further medical problems in the next 2-3 months u ntil her PCP returns. Time this discharge required is 45 minutes, greater than 50% to prenatal genetic counselor and coordinate her care. All questions were answered to the patient and the medications were reviewed with the patient. /[id number]/MODL
== END 2017-05-03 15:10 | disposition home health service (06) | DRG 684 ==
LOC: F2W 15:26 → OBSVTOIN 05-01 15:23
PROVIDERS: ADMIT Internal Medicine; ATTEND Internal Medicine
DX: N17.9 Acute kidney failure, unspecified (principal); E86.1 Hypovolemia; E86.0 Dehydration; I25.10 Atherosclerotic heart disease of native coronary artery without angina pectoris; I12.9 Hypertensive chronic kidney disease with stage 1 through stage 4 chronic kidney disease, or unspecified chronic kidney disease; N18.3 Chronic kidney disease, stage 3 (moderate); G47.33 Obstructive sleep apnea (adult) (pediatric); E11.9 Type 2 diabetes mellitus without complications; E78.5 Hyperlipidemia, unspecified; Z98.890 Other specified postprocedural states
CPT/HCPCS: 97116-GP; 97161-GP; 97165-GO; 97530-GO; 97530-GP; 97535-GO; A9500; A9540; G0378; G0379; G8978-GP-CJ; G8979-GP-CI; G8980-GP-CI; G8987-GO-CJ; G8988-GO-CI; G8989-GO-CI; J1170; J1644; J2405; J2785; J3475; J3480